=== PATIENT | female | born 1960 | race Caucasian/White ===

== ENCOUNTER 2018-06-10 12:28 | Emergency (ER) | payer SELFPAY ==
[~2018-06-10] VITALS: Ht 167.6 cm; Wt 71.5 kg
[2018-06-10 12:44] VITALS: BP 114/67; PULSE 88; RESP 20; Ht 167.6 cm; Wt 71.5 kg
== END 2018-06-10 15:55 | disposition left against medical advice (07) ==
LOC: E/R 12:28
DX: Z53.21 Procedure and treatment not carried out due to patient leaving prior to being seen by health care provider (principal)
CPT/HCPCS: 93005